=== PATIENT | male | born 1930 | race Caucasian/White ===

== ENCOUNTER 2021-06-21 13:09 | Emergency (ER) | payer OTHER ==
[~2021-06-21] VITALS: Ht 175.3 cm; Wt 68.0 kg
[2021-06-21 15:22] LABS: ABSOLUTE NEUTROPHILS 4.5 thou/uL (1.4-8.2); BASOPHILS 0.4 % (0.0-2.0); EOSINOPHILS 0.5 % (0.0-3.0); HEMATOCRIT 40.9 % (42.0-52.0); HEMOGLOBIN 13.6 gm/dL (14.0-18.0); MCH 31.4 pg (26.0-34.0); MCHC 33.1 g/dL (28.0-37.0); MCV 94.7 fL (80.0-100.0); MONOCYTES 10.9 % (1.0-8.0); PLATELET COUNT 236 thou/uL (150-400); POLYS 67.2 % (36.0-66.0); RBC 4.32 mil/uL (4.50-6.00); RDW 12.7 % (10.5-14.5); WBC 6.7 thou/uL (4.0-11.0)
[2021-06-21 15:31] LABS: CALCIUM 9.2 mg/dL (8.5-10.1); POTASSIUM 4.5 mmol/L (3.5-5.1)
[2021-06-21] MEDS ORDERED: NEURONTIN300 MG PO (16:18)
[2021-06-21] MEDS ORDERED: ASA81BEC PO (16:18)
[2021-06-21 17:36] VITALS: BP 161/80
--- NOTE | 2021-06-22 08:44 | EKG ---
[address] [address] [place] [address] ELECTROCARDIOGRAM REPORT Name: DENISE ARMIJO [id number] Admission: 06/21/21 Attend Phys: Discharge: 06/21/21 Date of : [birth year] Report #: [id number] [facility] ED Test Date: 2021-06-21 Test Time: 13:35:27 Pat Name: ALEKSANDER WALKER Department: Room: Gender: Keno Dealer: MIKAELA : 1930 Requested By: Perry Weller Order Number: [id number] MD: James Colorado Measurements Intervals [place] Rate: 81 P: 50 PA: 169 QRS: 21 QRSD: 149 T: 35 QT: 404 QTc: 469 Interpretive Statements Sinus rhythm Multiple ventricular premature complexes Right bundle branch block No previous ECG available for comparison Electronically Signed On 06-22-2021 8:44:46 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 06/22/21 0844 [id number] James Colorado MD, FACC /EPI
== END 2021-06-21 17:36 | disposition home or self-care (01) ==
LOC: ER 13:09
PROVIDERS: Emergency Medicine
DX: R55 Syncope and collapse (principal); I25.10 Atherosclerotic heart disease of native coronary artery without angina pectoris; Z85.118 Personal history of other malignant neoplasm of bronchus and lung; Z90.49 Acquired absence of other specified parts of digestive tract; Z90.89 Acquired absence of other organs; Z79.82 Long term (current) use of aspirin; Z79.899 Other long term (current) drug therapy